=== PATIENT | male | born 1975 | race Caucasian/White ===

== ENCOUNTER 2020-02-13 11:45 | Emergency (ER) | payer BC, OTHER | END 2020-02-13 12:28 | disposition home or self-care (01) | LOC: JVIRT 11:45 | DX: Z03.818 Encounter for observation for suspected exposure to other biological agents ruled out (principal) | CPT/HCPCS: C9803; Q3014-GT; U0003 ==

== ENCOUNTER 2020-03-05 10:07 | Emergency (ER) | payer BC, OTHER | END 2020-03-05 11:46 | disposition home or self-care (01) | LOC: JVIRT 10:07 | DX: Z03.818 Encounter for observation for suspected exposure to other biological agents ruled out (principal) | CPT/HCPCS: C9803; G2012-GT; U0003 ==